=== PATIENT | female | born 1945 | race African-American/Black ===

== ENCOUNTER 2020-07-11 11:46 | Inpatient (IN) ==
[2020-07-11 12:33] LABS: Basophils % 0.6 % (0.0-0.8); Eosinophils # 0.1 10*3/uL (0.0-0.87); Eosinophils % 1.9 % (0.00-10.9); Hematocrit 32.4 VOL% (35.7-47.0); Hemoglobin 10.8 GM/DL (12.0-16.0); Immature Granulocytes % 0.2 %; Immature Granulocytes Absolute 0.01 #; Lymphocytes # 0.5 10*3/uL (1.4-4.0); Lymphocytes % 10.1 % (21.3-54.2); Mean Corpuscular HGB Conc 33.3 GM/DL (32-36); Mean Corpuscular Volume 97.6 FL (87-102); Mean Platelet Volume 10.9 FL (9.6-12.0); Monocytes % 8.4 % (1.7-12.7); Neutrophils % 78.8 % (38.7-73.9); Platelet Count 142 T/CUMM (130-400); Red Blood Count 3.32 MC/CUMM (3.8-5.5); Red Cell Distribution Width 14.6 % (9.3-17.3); White Blood Count 5.3 T/CUMM (4-12)
[2020-07-11 12:39] LABS: INR 0.9; PT Patient Result 10.1 SECS (9.8-11.9)
[2020-07-11 12:46] LABS: Calcium 8.9 MG/DL (8.5-10.1); Osmolality,Calculated 278.8 MOS/KG (273-304)
[2020-07-11] MEDS ORDERED: ONDANSETRON 4 MG/2 ML VIAL IV PRN (14:34)
[2020-07-11] MEDS ORDERED: ACETAMINOPHEN 325 MG TABLET PO PRN (14:34)
[2020-07-11] MEDS ORDERED: PROMETHAZINE 25 MG/1 ML VIAL IM PRN (14:34)
[2020-07-11] MEDS ORDERED: INFLUENZA VIRUS VACCINE 0.5 ML SYRINGE IM ONE (15:09)
[2020-07-11] MEDS: METOCLOPRAMIDE 5 MG TABLET PO SCH (16:02)
[2020-07-11] MEDS: cephALEXin 500 MG CAPSULE PO SCH ×2 (16:03→21:16)
[2020-07-11] MEDS: NON-FORMULARY MEDICATION (Sucroferric Oxyhydroxide [Velphoro] 500 mg tablet,chewable) PO SCH (18:35)
[2020-07-11] MEDS: DOXAZOSIN 4 MG TABLET PO SCH (21:16)
[2020-07-11] MEDS: SIMVASTATIN 10 MG TABLET PO SCH (21:16)
[2020-07-11] MEDS: GABAPENTIN 300 MG CAPSULE PO SCH (21:29)
[2020-07-12] MEDS: LEVOTHYROXINE 25 MCG TABLET PO SCH (06:11)
[2020-07-12 06:25] LABS: Basophils % 0.5 % (0.0-0.8); Eosinophils # 0.1 10*3/uL (0.0-0.87); Hematocrit 29.2 VOL% (35.7-47.0); Hemoglobin 9.5 GM/DL (12.0-16.0); Immature Granulocytes % 0.2 %; Immature Granulocytes Absolute 0.01 #; Lymphocytes # 0.8 10*3/uL (1.4-4.0); Lymphocytes % 17.1 % (21.3-54.2); Mean Corpuscular HGB Conc 32.5 GM/DL (32-36); Mean Corpuscular Volume 100.7 FL (87-102); Mean Platelet Volume 10.4 FL (9.6-12.0); Monocytes % 11.7 % (1.7-12.7); Neutrophils % 68.5 % (38.7-73.9); Platelet Count 129 T/CUMM (130-400); Red Cell Distribution Width 14.6 % (9.3-17.3); White Blood Count 4.4 T/CUMM (4-12)
[2020-07-12 06:50] LABS: Osmolality,Calculated 290.5 MOS/KG (273-304)
[2020-07-12] MEDS ORDERED: ceFAZolin 1,000 MG in SYRINGE 1 EACH IV ONE (08:12)
[2020-07-12] MEDS ORDERED: GABAPENTIN 300 MG CAPSULE PO SCH (09:00)
[2020-07-12] MEDS ORDERED: LIDOCAINE 2% 5 ML VIAL ONE (13:05)
[2020-07-12] MEDS ORDERED: MIDAZOLAM 2 MG/2 ML VIAL ONE (13:05)
[2020-07-12] MEDS ORDERED: fentaNYL 100 MCG/2 ML VIAL ONE (13:05)
[2020-07-12] MEDS ORDERED: SODIUM CHLORIDE 0.9% 100 ML IV ONE (13:05)
[2020-07-12] MEDS ORDERED: propofoL 200 MG/20 ML VIAL IV ONE (13:05)
[2020-07-12] MEDS ORDERED: HEPARIN 5,000 UNIT/1 ML VIAL ONE (13:11)
[2020-07-12] MEDS: CHOLECALCIFEROL 1,000 UNIT TABLET PO SCH (15:33)
[2020-07-12] MEDS: ASPIRIN EC 81 MG TABLET PO SCH (15:33)
[2020-07-12] MEDS: DOXAZOSIN 4 MG TABLET PO SCH ×2 (15:34→20:08)
[2020-07-12] MEDS: METOCLOPRAMIDE 5 MG TABLET PO SCH ×3 (15:34→18:19)
[2020-07-12] MEDS: NON-FORMULARY MEDICATION (Sucroferric Oxyhydroxide [Velphoro] 500 mg tablet,chewable) PO SCH ×3 (15:34→18:19)
[2020-07-12] MEDS: MULTIVITAMIN (CENTRUM) TABLET PO SCH (15:34)
[2020-07-12] MEDS: PANTOPRAZOLE 40 MG TABLET PO SCH (15:34)
[2020-07-12] MEDS: cephALEXin 500 MG CAPSULE PO SCH ×2 (15:58→20:08)
[2020-07-12] MEDS: GABAPENTIN 300 MG CAPSULE PO SCH (20:09)
[2020-07-12] MEDS: SIMVASTATIN 10 MG TABLET PO SCH (20:09)
[2020-07-13] MEDS: LEVOTHYROXINE 25 MCG TABLET PO SCH (05:43)
[2020-07-13] MEDS: METOCLOPRAMIDE 5 MG TABLET PO SCH ×2 (07:26→14:21)
[2020-07-13] MEDS: cephALEXin 500 MG CAPSULE PO SCH (08:40)
[2020-07-13] MEDS: DOXAZOSIN 4 MG TABLET PO SCH (08:43)
[2020-07-13] MEDS: PANTOPRAZOLE 40 MG TABLET PO SCH (08:44)
[2020-07-13] MEDS: ASPIRIN EC 81 MG TABLET PO SCH (08:44)
[2020-07-13] MEDS: CHOLECALCIFEROL 1,000 UNIT TABLET PO SCH (08:44)
[2020-07-13] MEDS: MULTIVITAMIN (CENTRUM) TABLET PO SCH (08:44)
[2020-07-13 08:46] LABS: Hepatitis B Surface Ag Quant < 0.10 Index; Hepatitis B Surface Ag Result Negative (Negative)
[2020-07-13] MEDS: NON-FORMULARY MEDICATION (Sucroferric Oxyhydroxide [Velphoro] 500 mg tablet,chewable) PO SCH ×2 (08:47→14:22)
[2020-07-13 20:52] VITALS: BP 163/50
== END 2020-07-13 15:05 | disposition home or self-care (01) | DRG 252 ==
LOC: EDBD → EDUNIT# → N.ED 11:46 → N.EDINP 13:40 → N.3E 14:42
PROVIDERS: ADMIT Surgery; ATTEND Surgery
PROC: VAVDCFI (2020-07-12 13:14)